=== PATIENT | female | born 1975 | race Hispanic/Latino ===

== ENCOUNTER 2016-12-05 03:19 | Emergency (ER) | payer MEDICAID ==
[~2016-12-05] VITALS: Ht 152.4 cm; Wt 70.0 kg
[~2016-12-05 03:19] MED LIST: ZIT250 PO
[2016-12-05 03:29] VITALS: BP 146/88; PULSE 81; RESP 16; O2SAT 99
--- NOTE | 2016-12-05 04:05 | ED.REPORT ---
HPI-Head Prob / Injury Date of Service Dec 05, 2016 ED Provider: Antoine Guadalupe MD This is a 41 year old female who is 12 weeks presenting to the ED complaining of left sided headache that began 1 day ago. Associated symptoms include nausea and tingling in bilateral hands, photophobia. Denies recent trauma, vomiting, fever, chills, cough, or vision changes. She has had similar episodes she says a times in the past. She has never been told she has migraines. She has not been imaged. Nursing Notes Stated Complaint: HEADACHE Chief Complaint: Headache Nursing Notes Reviewed: Yes Allergies: Coded Allergies: No Known Allergies (Verified , 12/05/16) Scheduled Azithromycin (Zithromax) 250 Mg Tablet 250 MG PO DAILY You received her first dose in the emergency department today. Her next dose is due on December 15 Scheduled PRN Promethazine HCl (Phenergan) 25 Mg Supp.rect 25 MG RC TID PRN PRN For Nausea Miscellaneous Medications ([None]) General Time Seen by Provider: 04:11 Chief Complaint Other (headache ) Hx Obtained From: Patient Arrived By: Walk-in Onset Occurred: 1 day ago Symptom Duration: Since onset Severity: Current: Moderate Pertinent Negative: Pt denies other symptoms Recent Healthcare: No recent doctor visit, No recent hospitalization Similar Sx Previous: Yes Risk-Head Prob / Injury NIH Stroke Scale Level of Consciousness: Alert and responsive (0) Ask Month & Age: Both questions right (0) Open/Close Eyes/Hand Water Resource Manager: Performs both tasks (0) Horizontal EO Movements: None (0) Visual Valente: No visual loss (0) Facial Palsy: Normal symmetry (0) Right Arm Motor Drift (10s): No drift 10 sec (0) Left Arm Motor Drift (10s): No drift 10 sec (0) Right Leg Motor Drift (5s): No drift 5 sec (0) Left Leg Motor Drift (5s): No drift 5 sec (0) Limb Ataxia FNF/Heel-Torres: No ataxia (0) Sensation (Arms/Legs/Face): No sensory loss (0) Language Aphasia: No aphasia, normal (0) Dysarthria: No dysarthria, normal (0) Extinction/Inattention: No exctinct/inattent (0) NIHSS Score: 0 Time NIHSS Performed: 04:14 Date NIHSS Performed: Dec 05, 2016 Past Medical History Past Medical History 12 weeks as of 12/05/16 Family History noncontributory Smoking History Never Smoker Social History Alcohol Use: Denies alcohol use Drug Use: Denies drug use Ambulatory Status Independent Review of Systems Constitutional: Denies: Chills, Fever GI: Reports: Nausea, Denies: Abdominal pain, Constipation, Diarrhea, Vomiting Neurologic: Reports: Headache, Numbness, Denies: Change LOC, Confusion, Dizziness, Weakness Complete sys rev & neg: except as marked. Physical Exam Initial Vital Signs Vital Signs (First) Date Time Temp Pulse Resp B/P Pulse Ox O2 Delivery O2 Flow Rate FiO2 12/05/16 03:29 37.1 81 16 146/88 99 Room Air Initial VS: Reviewed Respiratory: Breath sounds normal, Clear to auscultation, No respiratory distress Cardiovascular: Regular rate & rhythm, Heart sounds normal, Intact distal pulses Extremities: Vascular intact, Neuro intact, No swelling, No tenderness Skin: Warm, Dry, No cyanosis Psychiatric: Mood/affect normal, Behavior normal, Normal thought content General/Constitutional: Awake, Alert Head / Eyes: PERRL, EOMI, No nystagmus, No photophobia ENT: Atraumatic, Airway patent, Mucous membranes moist, Pharynx NL, Tympanic membs NL, Ext aud canal NL Neck: Atraumatic, Supple, Full range of motion, No swelling, Non-tender, No midline vertebral tend, No masses Neurologic: Oriented X3, Speech NL, No motor deficits, No sensory deficits, CN II - XII intact, Cerebellar NL Interpretation & Diagnostics Lab Results Interpretation Result Diagram: 12/05/16 0445 12/05/16 0445 Test 12/05/16 04:45 White Blood Count 10.0th/mm3 (3.8-10.1) Red Blood Count 4.56mil/mm3 (3.90-5.20) Hemoglobin 12.1g/dL (12.0-15.6) Hematocrit 36.5% (35.0-46.0) Mean Corpuscular Volume 80.0fL (81-100) Mean Corpuscular Hemoglobin 26.5pg (27.0-35.0) Mean Corpuscular Hemoglobin Concent 33.2% (32.0-37.0) Red Cell Distribution Width 14.1% (12.3-15.4) Platelet Count 302bil/L (150-400) Neutrophils (%) (Auto) 68.0% (40-74) Lymphocytes (%) (Auto) 22.0% (14-46) Monocytes (%) (Auto) 7.6% (4-12) Eosinophils (%) (Auto) 1.6% (0-5) Basophils (%) (Auto) 0.3% (0-3) Sodium Level 138mEq/L (134-144) Potassium Level 3.7mEq/L (3.5-5.2) Chloride Level 102mEq/L (97-108) Carbon Dioxide Level 23mmol/L (18-29) Blood Urea Nitrogen 7mg/dL (6-24) Creatinine 0.41mg/dL (0.57-1.00) Estimat Glomerular Filtration Rate 244mL/min (>59) Glucose Level 129mg/dL (60-99) Calcium Level 9.3mg/dL (8.5-10.1) C-Reactive Protein 1.1mg/dL (0.0-0.5) CT Head Interpretation Interpretation / Wet Read by: Interpret - Radiologist NL CT Head Findings: No acute disease Re-Eval/Medical Decision Med Decision/Clinical Course 41-year-old female currently twelve weeks , presents with a left-sided headache she rates as severe. It is associated with photophobia and nausea. She denies a trauma history. Has not been imaged in had not previously been advised that she has migraine. Imaging tonight is negative. She is improved after IV Tylenol Decadron fluids and Phenergan. Discharged out of Phenergan and Excedrin migraine if needed. Follow up with PCP. Counseled Regarding: Diagnosis, Need for follow-up, When/why to return to ED Discharge & Departure Primary Impression: Migraine Disposition: Home All VS Reviewed: Yes Condition: Improved Referrals: NOPCP (PCP) Scribe Attestation Portions of this note were transcribed by Jarod Hurley. I, Dr. Guadalupe personally performed the history, physical exam and medical decision-making; I reviewed and confirmed the accuracy of the information in the transcribed note. Signed by: laith Trevizo. 12/04/2016, 03:30. Antoine Guadalupe MD Dec 05, 2016 04:05 JAROD HURLEY Dec 05, 2016 04:17
[2016-12-05] MEDS ORDERED: Ondansetron 2 mg/mL 2 mL Inj IVPUSH ONE (04:15)
[2016-12-05] MEDS ORDERED: Dexamethasone 10 mg/mL Inj IVPUSH ONE (04:15)
[2016-12-05] MEDS ORDERED: Haloperidol 5 mg/mL Inj IVPUSH ONE (04:15)
[2016-12-05] MEDS ORDERED: 0.9% Sodium Chloride 1,000 ML IV ONE (04:15)
[2016-12-05] MEDS ORDERED: Acetaminophen IV 1,000 MG in IV Premix 1 EACH IV ONE (04:55)
[2016-12-05] MEDS ORDERED: Promethazine 12.5 mg/50 mL-NS 12.5 MG in IV Premix 1 EACH IV ONE (04:55)
[2016-12-05 05:06] LABS: BASOPHILS % (AUTO) 0.3 % (0-3); EOSINOPHILS % (AUTO) 1.6 % (0-5); MONOCYTES % (AUTO) 7.6 % (4-12); Mean Corpuscular Hemoglobin 26.5 pg (27.0-35.0); Platelet Count 302 bil/L (150-400)
[2016-12-05] MEDS ORDERED: PROM25SU46 RC (05:56)
[2016-12-05 06:38] VITALS: BP 132/84; PULSE 76; RESP 16; O2SAT 99
[2016-12-05 08:43] LABS: ERYTHROCYTE SEDIMENTATION RATE 18 mm/hr (0-32)
--- NOTE | 2016-12-05 09:59 | DRSVH ---
PROCEDURE: CT BRAIN WITHOUT CONTRAST ([id number]) INDICATIONS: left sided headache TECHNIQUE: Noncontrast 4.5 mm thick angled axial sections acquired from the foramen magnum to the vertex, with c oronal reformats. COMPARISON: None. FINDINGS: Image quality: Excellent. CSF spaces: Basal cisterns are patent. No extra-axial fluid collections. Ventricles are normal in size and shape. Brain: No midline shift. No intracranial masses or hemorrhage. Arreola-white matter interface is norm al. Skull and face: Calvarium and visualized facial bones are intact, without suspicious lesions. Sinuses: Mucosal thickening noted in the sphenoid sinuses bilaterally, the ethmoid air cells bilatera lly and the visualized maxillary sinuses bilaterally. 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 mastoids are clear. IMPRESSION: 1. No acute intracranial disease process. 2. Mucosal thickening involving the visualized maxillary sinuses, the ethmoid air cells and the sphen oid sinuses. Please correlate with clinical data to exclude sinusitis. Dictated by: Suzan Watson MD, PhD on 12/05/2016 at 9:58 Approved by: Suzan Watson MD, PhD on 12/05/2016 at 9:58
== END 2016-12-05 06:40 | disposition home or self-care (01) ==
LOC: SED 03:19
DX: O99.351 Diseases of the nervous system complicating pregnancy, first trimester (principal); G43.909 Migraine, unspecified, not intractable, without status migrainosus; O26.891 Other specified pregnancy related conditions, first trimester; R20.2 Paresthesia of skin; Z3A.12 12 weeks gestation of pregnancy
CPT/HCPCS: 36415; 70450; 80048; 85025; 85651; 86140; 96361; 96374; 96375; 99285; J0131; J1100; J2550; J7030

== ENCOUNTER 2016-12-10 15:50 | Emergency (ER) | payer MEDICAID ==
[~2016-12-10] VITALS: Ht 157.5 cm; Wt 70.5 kg
[~2016-12-10 15:50] MED LIST changes: +PROM25SU46 RC
[2016-12-10 15:57] VITALS: BP 146/83; PULSE 81; RESP 16; O2SAT 99
--- NOTE | 2016-12-10 16:12 | ED.REPORT ---
HPI-Preg Under 20 Weeks Date of Service Dec 10, 2016 ED Provider: Nael Garcia MD Pt is a 41 y.o. female who is 13 weeks and presents to the ED c/o brown vaginal discharge onset 1 week ago. Pt states that she began to experience colicky abdominal pain this morning. She denies contractions, vaginal bleeding, fever, and vomiting. Pt does report a hx of spontaneous 10 years ago. Nursing Notes Stated Complaint: PAIN WITH Chief Complaint: Female Abdominal Pain Nursing Notes Reviewed: Yes Allergies: Coded Allergies: No Known Allergies (Verified , 12/10/16) Scheduled Azithromycin (Zithromax) 250 Mg Tablet 250 MG PO DAILY You received her first dose in the emergency department today. Her next dose is due on December 15 Scheduled PRN Ibuprofen (Ibuprofen) 800 Mg Tablet 800 MG PO TID PRN PRN For Pain Promethazine HCl (Phenergan) 25 Mg Supp.rect 25 MG RC TID PRN PRN For Nausea Miscellaneous Medications ([None]) General Time Seen by Provider: 15:57 Chief Complaint Vaginal discharge Context: : Known 1st trim Hx Obtained From: Patient Arrived By: Walk-in Onset Occurred: 1 week ago Symptom Duration: Since onset Location: : Abdomen upper Quality: Painful Severity: Current: Moderate Past Medical History Past Medical History 12 weeks as of 12/05/16 Family History noncontributory Smoking History Never Smoker Social History Alcohol Use: Denies alcohol use Drug Use: Denies drug use Ambulatory Status Independent Review of Systems Constitutional: Denies: Fever GI: Reports: Abdominal pain, Denies: Vomiting Female: Reports: , Vaginal discharge (Brown), Denies: Vaginal bleeding - abnl Complete sys rev & neg: except as marked. Physical Exam Initial Vital Signs Vital Signs (First) Date Time Temp Pulse Resp B/P Pulse Ox O2 Delivery O2 Flow Rate FiO2 12/10/16 15:57 37.6 81 16 146/83 99 Room Air Initial VS: Reviewed Head / Eyes: Atraumatic, Normocephalic Respiratory: Breath sounds normal, No respiratory distress Cardiovascular: Regular rate & rhythm, Intact distal pulses Extremities: Vascular intact, Neuro intact Skin: Warm, Dry, No cyanosis Neurologic: Alert, Oriented, Nonfocal Psychiatric: Mood/affect normal, Behavior normal, Normal thought content General/Constitutional: Awake, Alert, Well appearing, Well developed, Well hydrated, Well nourished, Not toxic appearing Abdomen: Atraumatic, Soft, No guarding, No rebound Tenderness/Guarding/Rebound: Positive: Tender epigastric (midline), Negative: Tender RUQ..., Tender suprapubic Female Genitourinary: Newspaper Clipper present, Atraumatic, No cervical motion tend, Os closed, No adnexal tenderness Vaginal Bleeding / Discharge: Positive: Clots present (significant amount) : Exam deferred Interpretation & Diagnostics Lab Results Interpretation Result Diagram: 12/10/16 1806 12/10/16 1806 Test 12/10/16 16:00 12/10/16 18:06 12/10/16 18:17 Hold Urine Received (Received) White Blood Count 9.6th/mm3 (3.8-10.1) Red Blood Count 4.59mil/mm3 (3.90-5.20) Hemoglobin 12.3g/dL (12.0-15.6) Hematocrit 36.2% (35.0-46.0) Mean Corpuscular Volume 78.9fL (81-100) Mean Corpuscular Hemoglobin 26.8pg (27.0-35.0) Mean Corpuscular Hemoglobin Concent 34.0% (32.0-37.0) Red Cell Distribution Width 13.8% (12.3-15.4) Platelet Count 308bil/L (150-400) Neutrophils (%) (Auto) 62.4% (40-74) Lymphocytes (%) (Auto) 27.8% (14-46) Monocytes (%) (Auto) 6.5% (4-12) Eosinophils (%) (Auto) 2.4% (0-5) Basophils (%) (Auto) 0.3% (0-3) Sodium Level 135mEq/L (134-144) Potassium Level 3.9mEq/L (3.5-5.2) Chloride Level 100mEq/L (97-108) Carbon Dioxide Level 21mmol/L (18-29) Blood Urea Nitrogen 7mg/dL (6-24) Creatinine 0.36mg/dL (0.57-1.00) Estimat Glomerular Filtration Rate 283mL/min (>59) Glucose Level 104mg/dL (60-99) Calcium Level 9.4mg/dL (8.5-10.1) Total Bilirubin 0.2mg/dL (0.0-1.2) Aspartate Amino Transf (AST/SGOT) 13U/L (0-50) Alanine Aminotransferase (ALT/SGPT) 8U/L (0-32) Alkaline Phosphatase 69U/L (25-150) Total Protein 7.8g/dL (6.4-8.4) Albumin 4.1g/dL (3.4-5.0) Lipase 20U/L (13-60) HCG Beta Subunit 5904mIU/mL Hold Read Top Tube Received (Received) US Focused OB IMPRESSION: 1. No detectable heart tones within the previously identified intrauterine fetus. It is identified in the lower uterine segment extending to the cervix. Findings are most suggestive of spontaneous . Dictated by: Nemo Bethea M.D. on 12/10/2016 at 19:21 Approved by: Nemo Bethea M.D. on 12/10/2016 at 19:21 Re-Eval/Medical Decision Med Decision/Clinical Course 41-year-old female at 13 weeks' presenting complaining of lower abdominal cramping since this morning. She reports some dark discharge. Vital signs stable. On exam with significant clots in the vault no products. Os closed with no active bleeding. Pelvic ultrasound transvaginal showed demise with parts in the cervix. Reportedly no products in the uterus. Patient was given ibuprofen for pain. She was counseled that she is having a miscarriage. Hemoglobin stable. Patient is to follow up with primary doctor in 2 days with return precautions regarding any worsening abdominal pain, fevers, lightheadedness, dizziness, worsening bleeding. Source of Hx: Old records Re-Evaluation/Progress #1: Time of Eval: 18:00 Re-Evaluation/Progress Note: Pt rechecked. Pelvic exam performed. Re-Evaluation/Progress #2: Time of Eval: 18:42 Re-Evaluation/Progress Note: Pt rechecked. Discussed need for US, pt understands and agrees with plan. Re-Evaluation/Progress #3: Time of Eval: 19:12 Re-Evaluation/Progress Note: Pt rechecked. Discussed dx and plan for discharge, pt understands and agrees with plan. Counseled Regarding: Diagnosis, Lab results, Need for follow-up, When/why to return to ED Discharge & Departure Primary Impression: Spontaneous Disposition: Home Discharge Condition All VS Reviewed: Yes Condition: Stable Patient Instructions: Spontaneous Miscarriage (ED) Additional Instructions: It appears that you had a spontaneous . Follow-up with your primary care provider in 2 days. Seek care for excessive vaginal bleeding, or any new or concerning symptoms. Parece que tuvo un aborto espontneo. El seguimiento con parisi mdico de cabecera en 2 nava. Buscar atencin para el sangrado vaginal excesivo o cualquier sntoma nuevo concernant esthela. Referrals: NOPCP (PCP) [facility] Eusebio Attestation Portions of this note were transcribed by Alexander Rosenbaum I, Dr. Garcia personally performed the history, physical exam and medical decision-making; I reviewed and confirmed the accuracy of the information in the transcribed note. Signed by: Eusebio Herring, 12/10/16 and 2010. copies to: [facility] Nael Garcia MD Dec 10, 2016 16:12 ALEXANDER ROSENBAUM Dec 10, 2016 16:18
[2016-12-10 18:19] LABS: BASOPHILS % (AUTO) 0.3 % (0-3); EOSINOPHILS % (AUTO) 2.4 % (0-5); MONOCYTES % (AUTO) 6.5 % (4-12); Mean Corpuscular Hemoglobin 26.8 pg (27.0-35.0); Mean Corpuscular Volume 78.9 fL (81-100); NEUTROPHILS % (AUTO) 62.4 % (40-74); Platelet Count 308 bil/L (150-400)
--- NOTE | 2016-12-10 19:23 | DRSVH ---
PROCEDURE: US OB<14 WKS+OB TRANSVAG INDICATIONS: 13 weeks vag bleeding OUTSIDE/PRIOR DATING DATA: Last menstrual period (LMP): 09/09/16. LMP-based estimated date of delivery (ULISES): 06/16/17. First dating scan (date and location): 11/10/16. Estimated date of delivery (ULISES) from first dating scan: 06/20/17. TECHNIQUE: Real-time scanning was performed of the fetus and maternal pelvic organs, with image documentation. Endovaginal scanning was also performed to better visualize the fetus and maternal ovaries. COMPARISON: None. FINDINGS: Embryo: The previously identified single live intrauterine demonstrates no detectable heart tones. During the course of the examination, previously identified fetus was identified within the l ower uterine segment into the cervix. [place]-rump length measures approximately 25 mm corresponding to 9 weeks 2 days. Comments: A normal yolk sac is noted. No perigestational bleeds. Measurement variability in dating: +/- 4 weeks by LMP, +/- 7 days by mean sac diameter (use before 6 weeks gestation if crown-rump length not able to be measured), +/- 5 days by crown-rump length (6-12 weeks gestation). Maternal organs: Ovaries are unremarkable. Limited images through the kidneys demonstrate no hydron ephrosis. IMPRESSION: 1. No detectable heart tones within the previously identified intrauterine fetus. It is identif ied in the lower uterine segment extending to the cervix. Findings are most suggestive of spontaneous . Dictated by: Nemo Bethea M.D. on 12/10/2016 at 19:21 Approved by: Nemo Bethea M.D. on 12/10/2016 at 19:21
[2016-12-10] MEDS ORDERED: IBUP800T28 PO (19:26)
[2016-12-10 19:35] VITALS: BP 138/80; PULSE 110; RESP 20; O2SAT 96
[2016-12-10 19:36] VITALS: BP 138/80; PULSE 110; RESP 20; O2SAT 96
== END 2016-12-10 19:37 | disposition home or self-care (01) ==
LOC: SED 15:50
DX: O03.9 Complete or unspecified spontaneous abortion without complication (principal); Z3A.13 13 weeks gestation of pregnancy

== ENCOUNTER 2016-12-10 21:32 | Observation (INO) | payer MEDICAID ==
[~2016-12-10] VITALS: Ht 157.5 cm; Wt 67.4 kg
[~2016-12-10 21:32] MED LIST changes: +IBUP800T28 PO
[2016-12-10 21:44] VITALS: BP 70/43; PULSE 67; RESP 14; O2SAT 98
[2016-12-10] MEDS ORDERED: 0.9% Sodium Chloride 1,000 ML IV ONE ×2 (22:04→22:50)
--- NOTE | 2016-12-10 22:05 | ED.REPORT ---
HPI-Preg Under 20 Weeks Date of Service Dec 10, 2016 ED Provider: Nael Garcia MD Pt is a 41 y.o. female who presents to the ED c/o increased abdominal pain and vaginal bleeding. Pt was discharged from the ED after a spontaneous , shortly after leaving she began to experience sharp cramping and vaginal bleeding. Upon triage pt became pale, weak, diaphoretic, hypotensive, and her vision blurred. Nursing Notes Stated Complaint: ABDOMINAL PAIN Chief Complaint: Female Abdominal Pain Nursing Notes Reviewed: Yes Allergies: Coded Allergies: No Known Allergies (Verified , 12/10/16) Scheduled Azithromycin (Zithromax) 250 Mg Tablet 250 MG PO DAILY You received her first dose in the emergency department today. Her next dose is due on December 15 Scheduled PRN Ibuprofen (Ibuprofen) 800 Mg Tablet 800 MG PO TID PRN PRN For Pain Promethazine HCl (Phenergan) 25 Mg Supp.rect 25 MG RC TID PRN PRN For Nausea Miscellaneous Medications ([None]) General Time Seen by Provider: 22:03 Chief Complaint Abdominal cramping, Vaginal bleeding Hx Obtained From: Patient Arrived By: Walk-in Onset Occurred: Just prior to arrival Location: : Abdomen lower Quality: Cramping, Painful Severity: Current: Severe Recent Healthcare: Recent doctor visit Past Medical History Past Medical History 12 weeks as of 12/05/16 Past Surgical History None reported Family History noncontributory Smoking History Never Smoker Social History Alcohol Use: Denies alcohol use Drug Use: Denies drug use Ambulatory Status Independent Review of Systems Pale Hypotensive Constitutional: Reports: Weakness - generalized Eyes: Reports: Blurred bilateral GI: Reports: Abdominal pain Female: Reports: Vaginal bleeding - abnl Skin: Reports Diaphoresis Neurologic: Reports: Dizziness Complete sys rev & neg: except as marked. Physical Exam Initial Vital Signs Vital Signs (First) Date Time Temp Pulse Resp B/P Pulse Ox O2 Delivery O2 Flow Rate FiO2 12/10/16 21:44 36.0 67 14 70/43 98 12/10/16 22:22 Room Air Initial VS: Reviewed Head / Eyes: Atraumatic, Normocephalic Respiratory: Breath sounds normal, No respiratory distress Cardiovascular: Regular rate & rhythm, Intact distal pulses Extremities: Vascular intact, Neuro intact Skin: Warm, No cyanosis Neurologic: Alert, Oriented, Nonfocal General/Constitutional: Awake, Alert Appearance / Presentation: Positive: Pale Abdomen: Atraumatic, Soft Tenderness/Guarding/Rebound: Positive: Tender suprapubic Female Genitourinary: Tandem Operator present, Atraumatic, External genitalia NL Vaginal Bleeding / Discharge: Positive: Bleeding mild (Active) Removed products of conception : Exam deferred Interpretation & Diagnostics Lab Results Interpretation Result Diagram: 12/10/16 2205 Test 12/10/16 22:05 White Blood Count 17.0th/mm3 (3.8-10.1) Red Blood Count 4.25mil/mm3 (3.90-5.20) Hemoglobin 11.1g/dL (12.0-15.6) Hematocrit 33.9% (35.0-46.0) Mean Corpuscular Volume 79.8fL (81-100) Mean Corpuscular Hemoglobin 26.1pg (27.0-35.0) Mean Corpuscular Hemoglobin Concent 32.7% (32.0-37.0) Red Cell Distribution Width 13.7% (12.3-15.4) Platelet Count 361bil/L (150-400) ECG Interpretation ECG Interpretation: No ST changes Time: 22:22 Interpreted by: ED physician Normal ECG Interpretation: Normal rate (87), Normal sinus rhythm Re-Eval/Medical Decision Med Decision/Clinical Course 41-year-old female seen earlier today for spontaneous miscarriage confirmed on pelvic ultrasound who did not have any bleeding at that time and was sent home. She returns with active vaginal bleeding. On exam with parts of conception in the vault and with active bleeding from the os. Hemoglobin from 12 earlier to 11 after approximately 4 hours apart. Patient was given 2 L normal saline. TYpe and Cross [address] Medina OUTPATIENT PSYCHIATRIST saw patient and will take to the operating room for D&C. Patient will go to telemetry pending OR as there is one case in front of her. Her blood pressures are stable at this time. Source of Hx: Old records Re-Evaluation/Progress #1: Time of Eval: 22:49 Re-Evaluation/Progress Note: Pt is complaining of increased cramping. Re-Evaluation/Progress #2: Time of Eval: 23:20 Re-Evaluation/Progress Note: Pt rechecked. Pelvic exam performed with ventilation equipment tender present. Actively bleeding and removed products of conception. Consultation : Referral / Consult Name: Kyle Medina MD Call Returned at: 23:30 Risk Management Professional: Will see patient, Requested OR Note: Discussed pt condition. Will see pt and perform DNC in OR. Counseled Regarding: Diagnosis, Lab results, Need for follow-up, When/why to return to ED Discharge & Departure Primary Impression: Spontaneous Additional Impression: Vaginal bleeding Disposition: ADMITTED TO HOSPITAL Discharge Condition All VS Reviewed: Yes Condition: Stable Referrals: NOPCP (PCP) [facility] Kyle Medina MD Attestation Portions of this note were transcribed by Alexander Rosenbaum I, Dr. Garcia personally performed the history, physical exam and medical decision-making; I reviewed and confirmed the accuracy of the information in the transcribed note. Signed by: Eusebio Herring, 12/11/16 and 0011. copies to: [facility]; Kyle Medina MD, Ben M MD Dec 10, 2016 22:04 ALEXANDER ROSENBAUM Dec 10, 2016 23:45
[2016-12-10 22:22] VITALS: BP 92/61; PULSE 93; RESP 16; O2SAT 98
[2016-12-10 22:49] VITALS: BP 103/51; PULSE 89; RESP 20; O2SAT 97
[2016-12-10] MEDS ORDERED: Ondansetron 2 mg/mL 2 mL Inj IVPUSH ONE (22:50)
[2016-12-10 22:52] LABS: Mean Corpuscular Hemoglobin 26.1 pg (27.0-35.0); Mean Corpuscular Volume 79.8 fL (81-100)
[2016-12-10 23:05] VITALS: BP 94/57; PULSE 110; RESP 20; O2SAT 98
[2016-12-10 23:30] VITALS: BP 112/75; PULSE 107; RESP 20; O2SAT 98
[2016-12-11] VITALS (11 sets, daily range): BP systolic 96–119; BP diastolic 59–71; PULSE 85–102; RESP 15–22; O2SAT 97–100
[2016-12-11] MEDS ORDERED: CeFAZolin 2 Gm/50 mL D5W IV Premix IV ONE (00:03)
--- NOTE | 2016-12-11 00:51 | PCM.CONSUR ---
Subjective Date of Service: Dec 11, 2016 History of Present Illness Pt is a 41 y.o. [id number] female who presents to the ED c/o increased abdominal pain and vaginal bleeding. Pt was discharged from the ED after a spontaneous , shortly after leaving she began to experience sharp cramping and vaginal bleeding. Upon triage pt became pale, weak, diaphoretic, hypotensive, and her vision blurred. Blood type is A positive. She has received IV fluid resuscitation. BP was 90's/50's when the ER physician contacted me. Her Hb dropped from 12.3 to 11.1 in a 4 hr period. She is typed and screened. Active bleeding per os was noted by the ER doc on repeat examination. 12 weeks as of 12/05/16. Ultrasound last evening revealed no detectable heart tones within the previously identified intrauterine fetus. It is identified in the lower uterine segment extending to the cervix. Findings are most suggestive of spontaneous . last meal was 330 pm yesterday ([place]). Previous miscarriage requiring a D&C in [place]. Otherwise healthy. Surgical hx: 2 c-sections Reason for Consultation incomplete Allergy Allergies: Coded Allergies: No Known Allergies (Verified , 12/10/16) Medications Hypertension Medication: No Home Meds Incl Beta Blockers: No ([None]) (Reported) Azithromycin (Zithromax) 250 Mg Tablet 250 MG PO DAILY You received her first dose in the emergency department today. Her next dose is due on December 15 Prescribed by: LIZZIE KIM MD Ibuprofen (Ibuprofen) 800 Mg Tablet 800 MG PO TID PRN PRN For Pain Prescribed by: ANGELA BEST Promethazine HCl (Phenergan) 25 Mg Supp.rect 25 MG RC TID PRN PRN For Nausea Prescribed by: TELLO FOFANA MD Past Surgical History Surgeries: No (C-SECTIONS) Social History Hx Alcohol Use: No Hx Substance Use: No PMH HEENT History History of ENT Problems?: No Cardiovascular History History of Heart Problems?: No Cardiovascular History: Denies:: Congestive Heart Failure Hypertension Respiratory History of Respiratory Problem: No Respiratory History: Denies:: Tuberculosis Other History Hx Any Other Health Problems?: No Diabetes: No Social History Hx Alcohol Use: NoHx Substance Use: No Smoking Status: Never Smoker Family History Family History: nil Objective Exam Vital Signs & I/O Vital Sign- Last 8 Hours Date Time Temp Pulse Resp B/P Pulse Ox O2 Delivery O2 Flow Rate FiO2 12/11/16 00:27 102 20 119/59 100 Room Air 12/10/16 23:30 107 20 112/75 98 Room Air 12/10/16 23:05 110 20 94/57 98 Room Air 12/10/16 22:49 89 20 103/51 97 Room Air 12/10/16 22:22 93 16 92/61 98 Room Air 12/10/16 21:44 36.0 67 14 70/43 98 Intake and Output- Last 8 Hour 12/11/16 Cumulative From/Thru 07:00 12/10/16 22:20 - 12/10/16 23:49 Intake Total 2000 ml Balance 2000 ml Intake IV Total 2000 ml Lab & Micro Results Laboratory Tests Test 12/10/16 22:05 White Blood Count 17.0th/mm3 (3.8-10.1) Red Blood Count 4.25mil/mm3 (3.90-5.20) Hemoglobin 11.1g/dL (12.0-15.6) Hematocrit 33.9% (35.0-46.0) Mean Corpuscular Volume 79.8fL (81-100) Mean Corpuscular Hemoglobin 26.1pg (27.0-35.0) Mean Corpuscular Hemoglobin Concent 32.7% (32.0-37.0) Red Cell Distribution Width 13.7% (12.3-15.4) Platelet Count 361bil/L (150-400) Result Diagram: 12/10/16 Review of Systems: Constitutional: Negative, except as otherwise mentioned in the history above. Ophthalmologic: Negative, except as otherwise mentioned in the history above. Cardiovascular: Negative, except as otherwise mentioned in the history above. Respiratory: Negative, except as otherwise mentioned in the history above. Gastrointestinal: Negative, except as otherwise mentioned in the history above. Genitourinary: Negative, except as otherwise mentioned in the history above. Musculoskeletal: Negative, except as otherwise mentioned in the history above. Neurological: Negative, except as otherwise mentioned in the history above. Psychiatric: Negative, except as otherwise mentioned in the history above. Hematologic/Lymphatic: Negative, except as otherwise mentioned in the history above. Allergic/Immunologic: Negative, except as otherwise mentioned in the history above. Additional Information CBC Test 12/10/16 22:05 White Blood Count 17.0th/mm3 (3.8-10.1) Red Blood Count 4.25mil/mm3 (3.90-5.20) Hemoglobin 11.1g/dL (12.0-15.6) Hematocrit 33.9% (35.0-46.0) Mean Corpuscular Volume 79.8fL (81-100) Mean Corpuscular Hemoglobin 26.1pg (27.0-35.0) Mean Corpuscular Hemoglobin Concent 32.7% (32.0-37.0) Red Cell Distribution Width 13.7% (12.3-15.4) Platelet Count 361bil/L (150-400) Type and screen pending H&P Surgical Exam Exam General: Alert, Oriented X3, Cooperative HEENT: Other (pallor noted) Respiratory: Clear to Auscultation Cardiac: Exam Unremarkable Abdomen: Normal bowel sounds Pelvic: Exceptions (deferred) Assessment & Plan Assessment Incomplete Ongoing uterine bleeding with hypotension requiring fluid resuscitation Plan: In the presence of a professional stopper maker helper, we consented her to a suction D&C. She was made aware of the risks of surgery including hemorrhage, need for blood transfusion, uterine perforation/scarring, rare bowel or bladder injury, uterine infection. She agreed with the risks and signed the consent form. Ancef IV distribution center associate to OR. She will be observed for several hours after surgery, a H&H will be rechecked and then she will be discharged once stable. RhoGam not needed. Resuscitation Status: CPR: Attempt Resuscitation Time Spent: 60 min spent, >50% counseling (significant portion spent requiring Icelandic translation). copies: Kyle Medina MD, William Andre Z MD Dec 11, 2016 00:51
[2016-12-11] MEDS ORDERED: Ondansetron 2 mg/mL 2 mL Inj IVPUSH PRN ×3 (00:55→03:35)
[2016-12-11] MEDS ORDERED: Alum-Mag Hydrox-Simeth 30 mL Suspension PO PRN (00:55)
--- NOTE | 2016-12-11 01:55 | NUR ---
ADMIT: 0106 Pt. arrived to [facility] from the ED via stretcher. Awake, talking. Was able to ambulate from the stretcher to her bed upon arrival steady on her feet. VS taken upon arrival, all vss. Pt. has IV line on her RAC with NS at TKO from the ED continue. Line is patent. when asked about pain she rated her pain at 4/10 mild cramping. States she was given pain medication in the ED to control her pain. Has a vaginal pad and underwear with some bleeding still. Pt. states it is now like a period but it was heavy previously. Able to answer all questions appropriately. she is A & O with all vss. Explained to pt. that she will be going to the OR tonight and must remain NPO. On going care.
--- NOTE | 2016-12-11 03:04 | NUR ---
TO OR: Consent signed by patient after anesthesiologist came in and explained procedure and risk of surgery. Was able to answer all questions appropriately with my help as technology coordinator. 0303 PT. taken to OR via stretcher by SCHOOL BUS MECHANIC. IV NS TKO turned to S.L. as per OR nurse request. Pt. voided just before leaving for OR, fresh vaginal pad and mesh underwear given. Vaginal bleeding is diminished to lite period. Pt. was able to ambulate from her bed to the stretcher on the hallway, steady on her feet. A & O, pleasant and cooperative.
--- NOTE | 2016-12-11 03:05 | PCM.HPANE ---
Patient Data Date of Service: Dec 11, 2016 Surgeon Admitting Provider:Kyle Medina MD Attending Provider:Kyle Medina MD Primary Care Physician:Britt Other Provider:Lachelle Ricketts Anesthesia Reason for Visit Spontaneous , Vaginal Bleed Ht/WT & BMI Height (Feet): 5 Height (Inches): 2.00 Weight (Kilograms): 67.400 Body Mass Index 27.34 Allergies Coded Allergies: No Known Allergies (Verified , 12/10/16) Past Anesthesia History Anesthesia History: Denies:: Anesthesia Reactions Diabetes History Hx Diabetes?: No Glycemic Control: Oral Medication MRSA MRSA: No Medications Hypertension Medication: No Home Meds Incl Beta Rosemary: No Active Scripts Ibuprofen 800 Mg [id number] Mg PO TID PRN For Pain #30 TABLET Prov:Nael Garcia MD 12/10/16 Promethazine HCl (Phenergan)25 Mg Supp.rect25 Mg RC TID PRN For Nausea #10 SUPP Prov:Antoine Guadalupe MD 12/05/16 Azithromycin (Zithromax)250 Mg [id number] Mg PO DAILY #4 TABLET Ref 0 You received her first dose in the emergency department today. Her next dose is due on December 15 Prov:Les Montes MD 12/14/15 Reported Medications [None] No Conflict Check Ref 0 08/21/09 History History of ENT Problems?: No Hx of Heart Problems?: No Cardiovascular History: Denies:: Congestive Heart Failure Hypertension Hx of Respiratory Problem?: No Respiratory History: Denies:: Tuberculosis Hx Neurologic Problems?: No Hx of GI Problems?: No Hx of Problems?: No Female Hx: Denies:: Currently (JUST HAD A SPONTANEOUS ) Hx Musculoskeletal Problems?: No Hx of Psycho/Social Problems?: No Hx Surgeries?: No (C-SECTIONS X2 HAS 2 CHILDREN AGE 7 & 3 YO) Hx Any Other Health Problems?: No Other History: Positive for:: Hospitalization (CHILDBIRTH) History Blood Transfusions: Positive for:: Accept Blood Products? Denies:: Blood Transfusions Hx Diabetes: No Hx Alcohol Use: NoHx Substance Use: No Smoking Status: Never Smoker Approx How Many Cigarettes/day: N/A Stop/Bang Treated for Sleep Apnea?: No Do You Have a CPAP Machine?: No S-Snoring: Do You Snore Loudly: No T-Tired: feel tired, fatigued: No O-Obsered: Observed not breath: No P-Blood Pressure: treated: No B- Body Mass Index > 35 kg/m2: No A- Age over 50: No N- Neck Large Circumference: No G- Gender Male: No ERIKA Total Score: 0 ERIKA Risk Assessment: Low Risk, <3 Yes Risk Assessment Category Category 1A: Patient has history of documented sleep apnea, and HAS NOT received any narcotic, sedative or anesthesia administration during this stay. Category 1B: Patient has history of documented sleep apnea, and HAS received any narcotic , sedative or anesthesia administration during this stay Category 2: Patient has SUSPECTED Obstructive Sleep Apnea, and HAS received any narcotic , sedative or anesthesia administration during this stay. Category 3: Patient has SUSPECTED Obstructive Sleep Apnea and HAS NOT received narcotic, sedative or anesthesia administration during this stay. Category 4: Outpatient in Procedural Areas with known sleep apnea or who screen positive for High Risk via the STOP/BANG questionnaire. Exam Exam Vital Signs Vital Signs Date Time Temp Pulse Resp B/P Pulse Ox O2 Delivery O2 Flow Rate FiO2 12/11/16 02:03 36.8 95 20 111/71 97 Room Air 12/11/16 01:05 102 16 96/60 98 Room Air 12/11/16 00:27 102 20 119/59 100 Room Air 12/10/16 23:30 107 20 112/75 98 Room Air 12/10/16 23:05 110 20 94/57 98 Room Air 12/10/16 22:49 89 20 103/51 97 Room Air 12/10/16 22:22 93 16 92/61 98 Room Air 12/10/16 21:44 36.0 67 14 70/43 98 General Appearance: Alert, Oriented X3, Cooperative, No Acute Distress HEENT/AIRWAY: MP 2 Lungs: Normal Air Movement Heart: Exam Unremarkable Meds/Labs/Diagnostics Admission Meds Current Medications Sodium Chloride 1,000 ml @ 0 mls/hr Q0M ONCE IV Last administered on 22:58; Start 12/10/16 at 22:04; Stop 12/10/16 at 22:05; Status DC Sodium Chloride (Normal Saline) 1,000 ml @ 0 mls/hr Q0M ONCE IV Last administered on 12/10/16 22:58; Start 12/10/16 at 22:50; Stop 12/10/16 at 22:51 ; Status DC Morphine Sulfate (Morphine 2 mg/ mL Syringe) 2 mg ONCE ONCE IVPUSH Last administered on 12/10/16t 22:58; Start 12/10/16 at 22:50; Stop 12/10/16 at 22:51 ; Status DC Ondansetron HCl (Zofran Inj) 4 mg ONCE ONCE IVPUSH Last administered on t 22:58; Start 12/10/16 at 22:50; Stop 12/10/16 at 22:51; Status DC Labs Test 12/10/16 22:05 White Blood Count 17.0th/mm3 (3.8-10.1) Red Blood Count 4.25mil/mm3 (3.90-5.20) Hemoglobin 11.1g/dL (12.0-15.6) Hematocrit 33.9% (35.0-46.0) Mean Corpuscular Volume 79.8fL (81-100) Mean Corpuscular Hemoglobin 26.1pg (27.0-35.0) Mean Corpuscular Hemoglobin Concent 32.7% (32.0-37.0) Red Cell Distribution Width 13.7% (12.3-15.4) Platelet Count 361bil/L (150-400) Plan Impression Patient chart reviewed, patient interviewed and anesthestic plan with risks, benefits, and alternatives discussed, and informed consent obtained. ASA Physical Status: ASA1 Normal Healthy Anesthetic Plan: GA Bene/Risks/Altern/Consents: Yes HP Complete Prior to Induction: Yes Antoine Kitchen MD Dec 11, 2016 03:05
[2016-12-11] MEDS ORDERED: Lactated Ringer's 1,000 ML IV ONE ×2 (03:06→03:26)
[2016-12-11] MEDS ORDERED: Lactated Ringer's 500 ML IV PRN (03:26)
[2016-12-11] MEDS ORDERED: Lactated Ringer's 1,000 ML IV SCH ×2 (03:26→03:34)
[2016-12-11] MEDS ORDERED: Atropine 0.4 mg/mL Inj IVPUSH PRN (03:30)
[2016-12-11] MEDS ORDERED: Labetalol 5 mg/mL 4 mL Inj IV PRN (03:30)
[2016-12-11] MEDS ORDERED: MetoCLOpramide 5 mg/mL 2 mL Inj IVPUSH PRN ×2 (03:30→03:35)
[2016-12-11] MEDS ORDERED: hydrALAZINE 20 mg/mL Inj IVPUSH PRN (03:30)
[2016-12-11] MEDS ORDERED: Phenylephrine 10,000 mCg/mL Inj IVPUSH PRN (03:30)
[2016-12-11] MEDS ORDERED: Dexamethasone 4 mg/mL Inj IVPUSH PRN (03:30)
[2016-12-11] MEDS ORDERED: EPHEDrine Sulfate 50 mg/mL Inj IVPUSH PRN (03:30)
[2016-12-11] MEDS ORDERED: HYDROmorphone 1 mg/mL Inj IVPUSH PRN (03:30)
[2016-12-11] MEDS ORDERED: oxyCODONE-Acetamin 5-325 mg Tablet PO PRN (03:35)
[2016-12-11] MEDS ORDERED: HYDROcodone-APAP 5-325 mg Tablet PO PRN (03:35)
[2016-12-11] MEDS ORDERED: Senna-Docusate 8.6-50 mg Tablet PO PRN (03:35)
[2016-12-11] MEDS ORDERED: Acetaminophen IV 1,000 MG in IV Premix 1 EACH IV PRN (03:35)
--- NOTE | 2016-12-11 03:44 | PCM.ANEP1 ---
Post Anesthesia Phase 1 PACU Phase 1 Assessment Date of Service: Dec 11, 2016 Vital Signs Vital Signs Date Time Temp Pulse Resp B/P Pulse Ox O2 Delivery O2 Flow Rate FiO2 12/11/16 03:36 36.7 89 15 99/63 100 Nasal Cannula 2 12/11/16 02:03 36.8 95 20 111/71 97 Room Air 12/11/16 01:05 102 16 96/60 98 Room Air 12/11/16 00:27 102 20 119/59 100 Room Air 12/10/16 23:30 107 20 112/75 98 Room Air 12/10/16 23:05 110 20 94/57 98 Room Air 12/10/16 22:49 89 20 103/51 97 Room Air 12/10/16 22:22 93 16 92/61 98 Room Air 12/10/16 21:44 36.0 67 14 70/43 98 Anesthetic Administered: GA Level of Alertness: Drowsy, not talking Pain: No Nausea or Vomiting: No Oxygen Delivery: Nasal Cannula Lungs: Normal Air Movement Antoine Kitchen MD Dec 11, 2016 03:44
--- NOTE | 2016-12-11 03:46 | PCM.ANEP2 ---
Post Anesthesia Evaluation ASA/CMS Post Anesthesia Date of Service: Dec 11, 2016 VS in Patient's Normal Range?: Yes Resp Stable; Airway Patent?: Yes CV Function & Hydration Stable: Yes Mental Status Recovered?: Yes Pain control Satisfactory?: Yes N/V Control Satisfactory?: Yes Antoine Kitchen MD Dec 11, 2016 03:46
[2016-12-11] MEDS: fentaNYL-PF 50 mCg/mL 2 mL Inj IVPUSH PRN ×2 (03:55→04:08)
--- NOTE | 2016-12-11 04:58 | NUR ---
POST OP: Pt. returned from PACU at 0430 drowsy but able to answer questions with slow response. Reports pain at 2/10. Pt. had emesis when transferring from stretcher to her bed. Aprox. 100 ml of clear liquid emesis. Given Zofran and Reglan per PATTERN ATTENDANT. Has IV LR with 20 mg of Pitocin at TKO. Has vaginal pad in place with a minimal amount of drainage. VS taken upon arrival from PACU. Current BP 96/60 will cont. to watch BP. Will place pt. on cont. pulse oximetry. Sleeping soundly. Post op transfer and initial assessment done per protocol. On going care. Pt's resting in couch.
[2016-12-11] MEDS ORDERED: Influenza (Adult) Vaccine 0.5 mL Syringe IM ONE (07:20)
--- NOTE | 2016-12-11 07:42 | NUR ---
VOID/BP: Pt's BP now is 100/64, Denies pain or discomfort. Up to the BSC with one person assist voided 350 ml of pink urine. Shyla pad with moderate amount of bloody discharge, new pad given with mesh underwear. Tolerated activity well. Gave report to NANCY Blair
[2016-12-11 11:03] LABS: BASOPHILS % (AUTO) 0.2 % (0-3); EOSINOPHILS % (AUTO) 0.1 % (0-5); Mean Corpuscular Hemoglobin 26.3 pg (27.0-35.0); Mean Corpuscular Volume 80.7 fL (81-100); NEUTROPHILS % (AUTO) 86.7 % (40-74); Platelet Count 293 bil/L (150-400)
--- NOTE | 2016-12-11 11:38 | PCM.PNSURG ---
Subjective Date of Service: Dec 11, 2016 Date of Service: Dec 11, 2016 Visit Information: Reason for Visit Spontaneous , Vaginal Bleed Surgery/Surgery Date Post-Op Day # 0 Date of Admission: Dec 11, 2016 at 00:45 Hospital Day # 1 Subjective: AVSS ambulating tolerating po intake no pain minimal bleeding Postop General: No Complaints Gastrointestinal: Tolerating Oral Feedings Postop Activity: Ambulating Independently Objective Vital Sign- Last 8 Hours Date Time Temp Pulse Resp B/P Pulse Ox O2 Delivery O2 Flow Rate FiO2 12/11/16 07:35 36.9 92 20 100/64 97 Room Air 12/11/16 05:51 36.9 85 20 99/61 99 Room Air 12/11/16 04:44 37.0 89 22 96/60 97 Room Air 12/11/16 04:00 36.6 90 101/66 99 Room Air 12/11/16 03:50 87 18 103/69 99 Room Air 12/11/16 03:45 87 17 103/67 99 Room Air 12/11/16 03:44 Nasal Cannula 12/11/16 03:40 87 18 104/64 99 Room Air 12/11/16 03:36 36.7 89 15 99/63 100 Nasal Cannula 2 Intake and Output- Last 8 Hour 12/11/16 Cumulative From/Thru 07:00 12/10/16 22:20 - 12/11/16 04:46 Intake Total 1150 ml 3150 ml Output Total 350 ml 350 ml Balance 800 ml 2800 ml IV Total 1150 ml 3150 ml Output Urine Total 100 ml 100 ml Estimated Blood Loss 250 ml 250 ml # Voids 1 1 General: Alert, Cooperative Lungs: Clear to Auscultation Abdomen: Benign, Soft Catheters: None Result Diagram: 12/11/16 1052 Assessment & Plan Impression 1. iron deficiency anemia secondary to acute blood loss 2. incomplete Problems: Plan start iron tabs and stool softeners (pt warned about s/e of constipation) OTC analgesics if needed POST op visit in 2 wk in [facility] today Resuscitation Status: CPR: Attempt Resuscitation copies to: Kyle Medina MD, William Andre Z MD Dec 11, 2016 11:38
--- NOTE | 2016-12-11 11:40 | PCM.DIGYN ---
Surgical Discharge Instruction Dates of Hospitalization Date of Hospital Admission Dec 11, 2016 at 00:45 Providers Admitting Physician: Kyle Medina MD Primary Care Physician: Nopcp Attending Physician: Kyle Medina MD Diagnosis at Time of Discharge Diagnosis at time of discharge incomplete iron deficiency anemia due to acute blood loss Post-operative diagnosis same Problems: Diet Discharge Diet: No restrictions Activity Discharge Activity-General: No restrictions, Try not to overdue Dressing and Incisional Care Hygiene: May shower Follow Up Plan Follow-up appointment: Weeks (2 - at [place] office) Call your provider for: Fever, Chills, Shortness of breath, Heavy vaginal bleeding, Increasing pain Kyle Medina MD Dec 11, 2016 11:40
--- NOTE | 2016-12-11 11:46 | PCM.DC.SUR ---
Discharge Summary Date of Service: Dec 11, 2016 Date of Hospital Admission: Dec 11, 2016 at 00:45 Date of Operation(s): 12/11/16 Date of Discharge: 12/11/16 Diagnosis at Time of Discharge incomplete iron-deficiency anemia secondary to acute blood loss Problems: Operation suction D&C Brief History and Physical: Pt is a 41 y.o. [id number] female who presents to the ED c/o increased abdominal pain and vaginal bleeding. Pt was discharged from the ED after a spontaneous , shortly after leaving she began to experience sharp cramping and vaginal bleeding. Upon triage pt became pale, weak, diaphoretic, hypotensive, and her vision blurred. She has received IV fluid resuscitation. BP was 90's/50's when the ER physician contacted me. Her Hb dropped from 12.3 to 11.1 in a 4 hr period. She is typed and screened. Active bleeding per os was noted by the ER doc on repeat examination. 12 weeks as of 12/05/16. Ultrasound last evening revealed no detectable heart tones within the previously identified intrauterine fetus. It is identified in the lower uterine segment extending to the cervix. Findings are most suggestive of spontaneous . last meal was 330 pm yesterday ([place]). Previous miscarriage requiring a D&C in [place]. Otherwise healthy. Physical exam: reveals ongoing bleeding from cervical os/uterus Hospital Course: Underwent suction D&C which was uncomplicated. Postoperatively.......... Hospital Day # 1 Subjective: AVSS ambulating tolerating po intake no pain minimal bleeding Postop General: No Complaints Gastrointestinal: Tolerating Oral Feedings Postop Activity: Ambulating Independently Vital Sign- Last 8 Hours Date Time Temp Pulse Resp B/P Pulse Ox O2 Delivery O2 Flow Rate FiO2 12/11/16 07:35 36.9 92 20 100/64 97 Room Air 12/11/16 05:51 36.9 85 20 99/61 99 Room Air 12/11/16 04:44 37.0 89 22 96/60 97 Room Air 12/11/16 04:00 36.6 90 101/66 99 Room Air 12/11/16 03:50 87 18 103/69 99 Room Air 12/11/16 03:45 87 17 103/67 99 Room Air 12/11/16 03:44 Nasal Cannula 12/11/16 03:40 87 18 104/64 99 Room Air 12/11/16 03:36 36.7 89 15 99/63 100 Nasal Cannula 2 Intake and Output- Last 8 Hour 12/11/16 Cumulative From/Thru 07:00 12/10/16 22:20 - 12/11/16 04:46 Intake Total 1150 ml 3150 ml Output Total 350 ml 350 ml Balance 800 ml 2800 ml IV Total 1150 ml 3150 ml Output Urine Total 100 ml 100 ml Estimated Blood Loss 250 ml 250 ml # Voids 1 1 General: Alert, Cooperative Lungs: Clear to Auscultation Abdomen: Benign, Soft Catheters: None Assessment & Plan Assessment & Plan Impression 1. iron deficiency anemia secondary to acute blood loss 2. incomplete Problems: Plan start iron tabs and stool softeners (pt warned about s/e of constipation) OTC analgesics if needed POST op visit in 2 wk in [place] [facility] today Pathology: pending Disposition: stable for discharge home Follow-up Plan: f/u in 2 wk ([None]) (Reported) Azithromycin (Zithromax) 250 Mg Tablet 250 MG PO DAILY You received her first dose in the emergency department today. Her next dose is due on December 15 Ibuprofen (Ibuprofen) 800 Mg Tablet 800 MG PO TID PRN PRN For Pain Promethazine HCl (Phenergan) 25 Mg Supp.rect 25 MG RC TID PRN PRN For Nausea copies to: Kyle Medina MD, William Andre Z MD Dec 11, 2016 11:46
[2016-12-11] MEDS ORDERED: Lidocaine PF 1% 30 mL Inj ONE (13:59)
[2016-12-11] MEDS ORDERED: Oxytocin 10 Unit/mL Inj ONE (13:59)
[2016-12-11] MEDS ORDERED: Ondansetron 2 mg/mL 2 mL Inj ONE (13:59)
[2016-12-11] MEDS ORDERED: Propofol 10,000 mCg/mL 20 mL Inj ONE (13:59)
[2016-12-11] MEDS ORDERED: Dexamethasone 4 mg/mL Inj ONE (13:59)
[2016-12-11] MEDS ORDERED: fentaNYL-PF 50 mCg/mL 2 mL Inj ONE (13:59)
--- NOTE | 2016-12-11 14:03 | NUR ---
Discharge Pt discharged at 1350 to private vehicle with family. No c/o pain, VSS, NEWBERRY and A&O x 3. Discharge done using cream maker on a stick. Pt has all discharge instructions in yoruba, care notes and Rx's. IV removed intact. All questions answered and all belongings with pt. Pt knows s/s of when to call provider or return to hospital.
--- NOTE | 2016-12-13 17:26 | PCM.SURGOP ---
Surgical Operative Report Date of Service: Dec 11, 2016 Pre Operative Diagnosis Incomplete Post Operative Diagnosis same Procedure: Suction dilation and curettage Surgeon and Switchboard Manager: Surgeon: Kyle Medina MD Assistants: None Indication for Procedure Pt is a 41 y.o. [id number] female who presents to the ED c/o increased abdominal pain and vaginal bleeding. Pt was discharged from the ED after a spontaneous , shortly after leaving she began to experience sharp cramping and vaginal bleeding. Upon triage pt became pale, weak, diaphoretic, hypotensive, and her vision blurred. Blood type is A positive. She has received IV fluid resuscitation. BP was 90's/50's when the ER physician contacted me. Her Hb dropped from 12.3 to 11.1 in a 4 hr period. She is typed and screened. Active bleeding per os was noted by the ER doc on repeat examination. 12 weeks as of 12/05/16. Ultrasound last evening revealed no detectable heart tones within the previously identified intrauterine fetus. It is identified in the lower uterine segment extending to the cervix. Findings are most suggestive of spontaneous . In the presence of a professional head porter, we consented her to a suction D&C. She was made aware of the risks of surgery including hemorrhage, need for blood transfusion, uterine perforation/scarring, rare bowel or bladder injury, uterine infection. She agreed with the risks and signed the consent form. Findings: see dictation Procedure Details The patient was brought to the operating room and was placed under general anesthesia. She was prepped and draped in the normal fashion for vaginal surgery with the legs in Yell[place]in stirrups. She was given a dose of IV ancef. Bimanual exam revealed an anterverted, anteflexed uterus. A sterile speculum was inserted and some tissue was noted at the os. This was removed with forceps. The cervix was already dilated and therefore Hegar dilation was not necessary. The uterus was sounded to 10 cm. The anterior lip of the cervix was grasped with a ring forceps. A curved #11 plastic suction curette was inserted in the anteverted orientation into the uterine cavity, then the vacuum suction was activated. Moderate products of conception was suctioned. A blunt curette was then used to gently curettage the uterus. No further tissue was liberated. The uterus was massaged and 20U of oxytocin in saline was infused. The uterus was firm. The ring forceps was removed. No ongoing bleeding was noted. The EBL was 250 ml. There were no complications. She was taken to the recovery room in stable condition. Complications There were no periprocedural complications identified. Surgical Specimen Removed: Yes Specimen sent to Pathology: Yes Surgical Specimen description: products of conception Anesthetic Plan: GA Grafts, Implants: None Output, Estimated Blood Loss: 250 (ml) Blood Administration during parisi: No Drains: None Catheters: None Post Operative Plan observation as outpatient, repeat CBC copies to: Kyle Medina MD, William Andre Z MD Dec 13, 2016 17:26
--- NOTE | 2016-12-14 12:55 | PATH ---
SURGICAL PATHOLOGY Attending Physician:Kyle Medina, CASE STATUS: Signed Out PATIENT NAME: JOHANN KATZ PID: [id number] : 1975 DATE COLLECTED:12/11/2016 00:00 SPECIMEN: Products of conception CLINICAL HISTORY: SPONTANEOUS , INCOMPLETE PRODUCTS OF CONCEPTION FINAL DIAGNOSIS: Products of Conception: Fragments of partially necrotic decidual tissue and immature placental tissue with avascular chorionic villi. ICD10 O02.1 GROSS DESCRIPTION: The specimen is received in one formalin filled container labeled with the patient's name, sublabeled "products of conception" and consists of multiple portions of tissue and blood which aggregate to 8.0 x 6.0 x 2.0 CM. No grossly recognizable parts are observed. Appliance Service Technician sections are submitted in 3 cassettes. 12/12/2016 [facility] ICD-9 CODES: CPT CODES: 1: 76968 Electronically Signed Out Darwin Hughes MD [facility] [address] [place] [address] Technical component performed at [facility], [facility] [address], [place], [address]
== END 2016-12-11 14:00 | disposition home or self-care (01) ==
LOC: SED 21:32 → OSC 12-11 00:45
PROVIDERS: ADMIT Obstetrics & Gynecology; ATTEND Obstetrics & Gynecology
PROC: 10D17ZZ Extraction of Products of Conception, Retained, Via Natural or Artificial Opening (ICD-10-PCS; principal; 2016-12-11 01:30)
DX: O03.4 Incomplete spontaneous abortion without complication (principal); Z3A.12 12 weeks gestation of pregnancy; Z23 Encounter for immunization
CPT/HCPCS: 36415; 59812; 85025; 85027; 86850; 88305; 90471; 96361; 96374; 96375; 99285; G0378; J0690; J1100; J2270; J2405; J2590; J2765; J7030; J7120; Q2039